=== PATIENT | female | born 1950 | race Two or more races ===

== ENCOUNTER 2021-05-26 10:32 | Emergency (ER) | payer OTHER ==
[2021-05-26 10:38] VITALS: BMI 26.9
[2021-05-26] MEDS ORDERED: FAMOTIDINE 20 MG/50 ML IVPB 20 MG/50 ML MG IVPB ONE ×2 (12:18→12:59)
[2021-05-26] MEDS ORDERED: ONDANSETRON 4 MG/2 ML VIAL IVPUSH ONE (12:18)
[2021-05-26] MEDS ORDERED: SODIUM CHLORIDE 0.9% 500 ML INFUS.BAG IV ONE (12:18)
[2021-05-26] MEDS ORDERED: ONDANSETRON 4 MG/2 ML VIAL ONE (12:59)
[2021-05-26 13:19] LABS: BASO % 0.4 % (0-2.0); HEMATOCRIT 43.1 % (32.4-45.2); HEMOGLOBIN 14.6 GM/dL (10.7-15.3); LYMPH % 47.6 % (8-40); MCHC 33.9 g/dl (32.0-36.0); MEAN CELL VOLUME 79.4 fl (80-96); MEAN PLT VOLUME 8.5 fl (7.5-11.1); MONO % 8.8 % (3.8-10.2); NEUT % 43.2 % (42.8-82.8); PLATELET COUNT 150 10^3/uL (134-434); RBC 5.42 M/mm3 (3.60-5.2); RDW 13.9 % (11.6-15.6)
[2021-05-26 13:36] LABS: CHLORIDE 105 mmol/L (98-107); SODIUM 136 mmol/L (136-145)
[2021-05-26 13:38] LABS: ALBUMIN 3.3 g/dl (3.4-5.0)
[2021-05-26 13:39] LABS: ANION GAP 7 MMOL/L (8-16); BLOOD UREA NITROGEN 9.8 mg/dL (7-18); CO2 25 mmol/L (21-32); GLUCOSE,RANDOM 254 mg/dL (74-106)
[2021-05-26 13:42] LABS: CREATININE 0.6 mg/dL (0.55-1.3)
[2021-05-26 13:43] LABS: BILIRUBIN,TOTAL 0.5 mg/dL (0.2-1)
[2021-05-26 13:44] LABS: ALK PHOS 95 U/L (45-117)
[2021-05-26 13:48] LABS: SGOT/AST 40 U/L (15-37); SGPT/ALT 39 U/L (13-61); TOT PROT 8.9 g/dl (6.4-8.2)
[2021-05-26 14:27] LABS: EPI CELLS >36 /uL (0-25.1); HYALINE CASTS 3 /uL (0-3.1); PH,URINE 6.5 (5.0-8.0); URINE APPEARANCE CLEAR; URINE BACTERIA 1878 /uL (0-1359); URINE BILIRUBIN NEGATIVE (NEGATIVE); URINE COLOR YELLOW; URINE GLUCOSE (UA) 3+ (NEGATIVE); URINE KETONE TRACE (NEGATIVE); URINE LEUK ESTERASE 1+ (NEGATIVE); URINE NITRITE NEGATIVE (NEGATIVE); URINE PROTEIN 1+ (NEGATIVE); URINE RBC 14 /uL (0-23.9); URINE UROBILINOGEN 0.2 mg/dL (0.2-1.0); URINE WBC 64 /uL (0-25.8)
[2021-05-26] MEDS ORDERED: PT OWN MED DRAWER 7, Y5N ONE (16:13)
[2021-05-26 17:14] VITALS: BP 104/70; PULSE 91; TEMP 101.3
[2021-05-26 17:19] LABS: SARS COV-2 MOLECULAR Presumptive Positive (Negative)
[2021-05-26] MEDS ORDERED: ACETAMINOPHEN 325 MG TABLET (FP) PO ONE (17:34)
[2021-05-26] MEDS ORDERED: ACETAMINOPHEN 325 MG TABLET (FP) ONE (17:35)
[2021-05-26] MEDS ORDERED: CASIRIVIMAB/IMDEVIMAB 10 ML in SODIUM CHLORIDE 100 ML IVPB ONE (17:47)
[2021-05-27 14:08] LABS: SARS-CoV-2 NAA Detected (Not Detected)
== END 2021-05-26 20:00 | disposition home or self-care (01) ==
LOC: JER 10:32
PROC: 3E03329 Introduction of Other Anti-infective into Peripheral Vein, Percutaneous Approach (ICD-10-PCS; principal; 2021-05-26)
PROC: 3E033NZ Introduction of Analgesics, Hypnotics, Sedatives into Peripheral Vein, Percutaneous Approach (ICD-10-PCS; 2021-05-26)
DX: R53.1 Weakness (principal); R53.83 Other fatigue; R50.9 Fever, unspecified; U07.1 COVID-19
CPT/HCPCS: 36415; 71045-TC-FY; 80053; 81003; 82550; 84484; 85025; 87086; 93005; 93010; 96365; 96375; 99284-25; C9803; M0240; Q0240; U0003; U0005